=== PATIENT | male | born 1990 | race Caucasian/White ===

== ENCOUNTER 2017-09-13 17:59 | Emergency (ER) | payer OTHER, MEDICAID ==
[2017-09-13] MEDS ORDERED: Lidocaine 1% with EPINEPHrine 1:100,000 20 ML MDV INFILT ONE (18:00)
[2017-09-13] MEDS ORDERED: Diphtheria,Pertussis(Acell),Tetanus Vaccine 0.5 ML SDV IM ONE (18:26)
[2017-09-13] MEDS ORDERED: Ketorolac 60 MG/2 ML SDV IM ONE (18:26)
[2017-09-13] MEDS ORDERED: Cephalexin 500 MG Cap PO ONE (21:13)
--- NOTE | 2017-09-13 21:17 | EDM.PDOC ---
ED HPI GENERAL MEDICAL PROBLEM - General Chief Complaint: Laceration Stated Complaint: LACERATION Time Seen by Provider: 09/13/17 18:12 Source of Information: Reports: Patient History Limitations: Reports: No Limitations - History of Present Illness INITIAL COMMENTS - FREE TEXT/NARRATIVE: c/o lac L hand pt deer hunting 1w ago, he was cutting up boxes that had deer meat in them when he cut the web space of his L hand with a estimator paperboard boxes he is a little numb along inner aspect of his thumb last Td unknown Left 1-Thumb Pain Score (Numeric/FACES): 6 - Related Data Allergies Allergy/AdvReac Type Severity Reaction Status Date / Time morphine Allergy Unknown unknown Verified 09/13/17 19:18 Home Meds: Home Meds Cephalexin 500 mg PO TID #15 tablet 09/13/17 [Rx] Social & Family History - Tobacco Use Smoking Status *Q: Current Every Day Smoker Years of Tobacco use: 10 Packs/Tins Daily: 0.5 - Caffeine Use Caffeine Use: Reports: Coffee - Recreational Drug Use Recreational Drug Use: Yes Drug Use in Last 12 Months: Yes Recreational Drug Type: Reports: Marijuana/Hashish Recreational Drug Use Frequency: Socially ED ROS GENERAL - Review of Systems Review Of Systems: See Below Constitutional: Reports: No Symptoms HEENT: Reports: No Symptoms Respiratory: Reports: No Symptoms Cardiovascular: Reports: No Symptoms Endocrine: Reports: No Symptoms GI/Abdominal: Reports: No Symptoms : Reports: No Symptoms Musculoskeletal: Reports: No Symptoms Skin: Reports: Wound Neurological: Reports: No Symptoms Psychiatric: Reports: No Symptoms Hematologic/Lymphatic: Reports: No Symptoms Immunologic: Reports: No Symptoms ED EXAM, SKIN/RASH Exam: See Below Exam Limited By: No Limitations General Appearance: Alert, WD/WN Skin: Other (there is a 3 cm lac in the web space between thumb and index finger of L hand, thru fat layer, muscle exposed but not violated, no tendon injury, does have dec'd light touch of medial aspect of thumb, no visible bleeders after pressure and soaking, no f.b., 1% lido with epi with #27 needle used for subc local, cleaned x 12 with gauze and NS, closed with Prolene 3-0 x 6 with good apposition of margins, tolerated well) Course - Vital Signs Last Recorded V/S: Last Vital Signs Temp 36.8 C 09/13/17 19:00 Pulse 72 09/13/17 19:00 Resp 16 09/13/17 19:00 BP 108/50 L 09/13/17 19:00 Pulse Ox 99 09/13/17 19:00 - Orders/Labs/Meds Orders: Active Orders 24 hr Category Date Time Status Vaccines to be Administered [RC] PER UNIT ROUTINE Care 09/13/17 18:26 Active Meds: Medications Discontinued Medications Generic Name Dose Route Start Last Admin Trade Name Makayla PRN Reason Stop Dose Admin Diphtheria/Tetanus/Acell Pertussis 0.5 ml 09/13/17 18:26 Adacel IM 09/13/17 18:27 .ONCE ONE Ketorolac Tromethamine 60 mg 09/13/17 18:26 09/13/17 18:43 Toradol IM 09/13/17 18:27 60 mg ONETIME ONE Administration Departure - Departure Time of Disposition: 21:17 Disposition: Home, Self-Care 01 Condition: Good Clinical Impression: Laceration of left hand - Discharge Information Prescriptions: Cephalexin 500 mg PO TID #15 tablet Referrals: Ignacio Douglas MD [Primary Care Provider] - Additional Instructions: Keep clean and dry and covered with a dressing. Avoid any use of the hand that puts tension on the wound. Inspect wound daily. See a physician the same day if there is any increase in redness, swelling, drainage, pain, warmth or fever. While it should not cause much discomfort, take ibuprofen 200 mg 3 tabs 4 times a day as needed. To help decrease risk of infection, take cephalexin 500 mg 1 tab 3 times a day for 5 days. See your doctor in 8 days to remove sutures. Call your Physician or Return to Emergency Department if: * Your condition worsens in any way. * You develop fever greater than 100.4. * You have vomitting that does not stop with medications. * You have pain that is not controlled with medications. - My Orders Last 24 Hours: My Active Orders 09/13/17 18:26 Vaccines to be Administered [RC] PER UNIT ROUTINE - Assessment/Plan Last 24 Hours: My Active Orders 09/13/17 18:26 Vaccines to be Administered [RC] PER UNIT ROUTINE
== END 2017-09-13 21:34 | disposition home or self-care (01) ==
LOC: FB.ED 17:59
DX: S61.412A Laceration without foreign body of left hand, initial encounter (principal); I10 Essential (primary) hypertension; W45.8XXA Other foreign body or object entering through skin, initial encounter; Z23 Encounter for immunization
CPT/HCPCS: 12002; 90471; 90715; 96372; 99282; J1885